=== PATIENT | male | born 1935 | race Caucasian/White ===

== ENCOUNTER → 2018-06-15 | Outpatient (CLI) | payer MEDICARE, OTHER ==
[~2018-06-15] MED LIST: IOPAMIDOL 370 MG/ML 200 ML INFUS..BTL INJ ONE; SODIUM CHLORIDE 0.9% 50ML 50 ML ONE
[2018-06-15 10:41] LABS: BLOOD UREA NITROGEN 12 mg/dL (7-26); BUN/CREATININE RATIO 13 (6-25); CREATININE, SERUM 0.94 mg/dL (0.72-1.25); EST GLOMERULAR FILTRATION RATE > 60 ML/MIN (60-)
--- NOTE | 2018-06-15 11:58 | Diagnostic Imaging Report ---
EXAMINATION: CT of the abdomen and pelvis with and without contrast. TECHNIQUE: Helical CT images of the abdomen and pelvis were performed from the lung bases to the lesser trochanters before and after the intravenous administration of 150 cc of Omnipaque 300 and the oral administration of Redicat. COMPARISON: None. CLINICAL HISTORY:No adrenal mass DISCUSSION: ABDOMEN/PELVIS: LOWER THORAX:Lung base atelectasis. Heart is enlarged. Right lower lobe calcified granuloma. HEPATOBILIARY: No focal hepatic lesions. No biliary ductal dilatation.Cholecystectomy. Minimal bile duct dilatation. SPLEEN: No splenomegaly. PANCREAS: The pancreas is atrophic with dilation of the pancreatic duct involving the distal body and tail. No visualized mass. ADRENALS: 5 cm left adrenal mass with 0 Hounsfield unit on precontrast, 91 on arterial, and 25 on delayed. Absolute and relative washout 72%. KIDNEYS/URETERS: 3 cm exophytic lesion from the superior left kidney with Hounsfield of 22 and not changed on delayed compatible with a mildly complex cyst. PELVIC ORGANS/BLADDER: The bladder is normal. PERITONEUM/RETROPERITONEUM: No free air or fluid. Mild infiltration of the mesentery. LYMPH NODES: No intra-abdominal,retroperitoneal, pelvic or inguinal lymphadenopathy. 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 Postsurgical change to the stomach. GI TRACT: Colonic diverticulosis. No obstruction. BONES AND SOFT TISSUE: Skeletal hyperostosis. IMPRESSION: 5 cm left adrenal adenoma. Pancreatic atrophy with dilation of the pancreatic duct sequela of prior pancreatitis. 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 Signed by: Dr. Brad Hirsch M.D. on 06/15/2018 11:55 AM
== END ==
LOC: CT 09:02
PROVIDERS: ATTEND Internal Medicine
DX: R19.00 Intra-abdominal and pelvic swelling, mass and lump, unspecified site (principal); R16.0 Hepatomegaly, not elsewhere classified
CPT/HCPCS: 36415; 74178; 82565; 84520; Q9967